=== PATIENT | female | born 2000 | race Two or more races ===

== ENCOUNTER 2018-09-12 02:15 | Observation (INO) | payer MEDICAID, OTHER ==
[2018-09-12] MEDS ORDERED: TERBUTALINE SULFATE 1 MG/ML 1ML VIAL SC ONE (03:12)
[2018-09-12] MEDS ORDERED: TERBUTALINE SULFATE 1 MG/ML 1ML VIAL SC SCH (10:00)
== END 2018-09-12 04:35 | disposition home or self-care (01) | DRG 566 ==
LOC: LDRP 02:15
PROVIDERS: ADMIT Obstetrics & Gynecology; ATTEND Obstetrics & Gynecology
DX: O23.43 Unspecified infection of urinary tract in pregnancy, third trimester (principal); O26.893 Other specified pregnancy related conditions, third trimester; R11.0 Nausea; Z3A.31 31 weeks gestation of pregnancy
CPT/HCPCS: 59025; 81002; 96372; G0378; J3105